=== PATIENT | female | born 1970 | race Caucasian/White ===

== ENCOUNTER 2020-06-17 16:23 | Emergency (ER) | payer SELFPAY ==
[2020-06-17 17:18] LABS: Absolute Lymphocytes (CBC) 0.5 K/uL (0.7-4.9); Basophils % 0.5 % (0-1.3); Hematocrit 33.7 % (36.0-45.0); Lymphocytes % 12.5 % (15.3-44.8); MPV 8.1 fL (7.6-11.3); RBC Red Blood Cell Count 3.94 M/uL (3.86-4.86)
[2020-06-17 17:19] LABS: Protime INR 1.12
[2020-06-17 17:26] LABS: ALT/SGPT 36 U/L (12-78); AST/SGOT 50 U/L (15-37); Albumin 2.7 g/dL (3.4-5.0); Alkaline Phosphatase 186 U/L (45-117); BUN Blood Urea Nitrogen 8 mg/dL (7-18); Bicarbonate 28 mmol/L (21-32); Bilirubin Direct 0.5 mg/dL (0-0.2); Bilirubin Total 1.3 mg/dL (0.2-1.0); Glucose Level 121 mg/dL (74-106); Magnesium 1.8 mg/dL (1.8-2.4); NT PRO-BNP 84 pg/mL (<125); Potassium 3.8 mmol/L (3.5-5.1); Protein, Total 7.8 g/dL (6.4-8.2); Sodium Level 143 mmol/L (136-145); Troponin (Emerg Dept Use Only) < 0.02 ng/mL (0.0-0.045)
--- NOTE | 2020-06-17 17:48 | RAD REPORT ---
EXAM DESCRIPTION: Katelyn Single View06/17/2020 5:03 pm CLINICAL HISTORY: Shortness of breath COMPARISON: 2014 FINDINGS: Lung bases are hazy. The heart is normal size IMPRESSION: Lung bases are hazy suspicious for bilateral infiltrates
[2020-06-17] MEDS ORDERED: HYDRALAZINE HCL 20 MG/ML VIAL ONE (17:54)
[2020-06-17] MEDS ORDERED: FUROSEMIDE 100 MG/10 ML VIAL IV ONE (17:54)
[2020-06-17] MEDS ORDERED: LABETALOL 20 MG/4ML SYRINGE IV ONE (18:38)
--- NOTE | 2020-06-17 18:57 | EDPHYS ---
Physician Documentation [facility] Name: Mercedes Carrillo Age: 49 yrs Sex: Female : 1970 Arrival Date: 06/17/2020 Time: 16:27 Bed 5 Private MD: ED Physician Cecil Jimenez HPI: 06/17 17:59 This 49 yrs old Female presents to ER via Ambulatory with complaints of jr8 Fever, Headache, Dizziness, chills. 17:59 Patient stated that she has had fevers, headache, dizziness, chills, chest pain, jr8 increased lower extremity swelling, and shortness of breath. Stated that the lower extremity swelling has been going on for past few weeks but all other symptoms just recently started . The patient has not experienced similar symptoms in the past. The patient has not recently seen a physician. 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 - Social history:: Smoking status: . ROS: 17:59 Eyes: Negative for injury, pain, redness, and discharge, ENT: Negative for injury, jr8 pain, and discharge, Neck: Negative for injury, pain, and swelling, MS/Extremity: Negative for injury and deformity, Skin: Negative for injury, rash, and discoloration. 17:59 Cardiovascular: Positive for chest pain, edema. 17:59 Respiratory: Positive for dyspnea on exertion. 17:59 Abdomen/GI: Positive for abdominal pain, Negative for nausea, vomiting, and diarrhea, constipation, abdominal cramps, abdominal distension, hematemesis, black/tarry stool, rectal pain, rectal bleeding, bowel incontinence, flatulence. 17:59 Back: Positive for pain at rest, pain with movement. 17:59 Neuro: Positive for dizziness, headache. Exam: 17:59 Eyes: Pupils equal round and reactive to light, extra-ocular motions intact. Lids and jr8 lashes normal. Conjunctiva and sclera are non-icteric and not injected. Cornea within normal limits. Periorbital areas with no swelling, redness, or edema. ENT: Nares patent. No nasal discharge, no septal abnormalities noted. Tympanic membranes are normal and external auditory canals are clear. Oropharynx with no redness, swelling, or masses, exudates, or evidence of obstruction, uvula midline. Mucous membranes moist. Neck: Trachea midline, no thyromegaly or masses palpated, and no cervical lymphadenopathy. Supple, full range of motion without nuchal rigidity, or vertebral point tenderness. No Meningismus. Respiratory: Lungs have equal breath sounds bilaterally, clear to auscultation and percussion. No rales, rhonchi or wheezes noted. No increased work of breathing, no retractions or nasal flaring. Abdomen/GI: Soft, non-tender, with normal bowel sounds. No distension or tympany. No guarding or rebound. No evidence of tenderness throughout. Back: No spinal tenderness. No costovertebral tenderness. Full range of motion. Skin: Warm, dry with normal turgor. Normal color with no rashes, no lesions, and no evidence of cellulitis. MS/ Extremity: Pulses equal, no cyanosis. Neurovascular intact. Full, normal range of motion. Neuro: Awake and alert, GCS 15, oriented to person, place, time, and situation. Cranial nerves II-XII grossly intact. Motor strength 5/5 in all extremities. Sensory grossly intact. Cerebellar exam normal. Normal gait. 17:59 Cardiovascular: Rate: normal, Rhythm: regular, Pulses: Pulses are 2+ in right radial artery and left radial artery. Heart sounds: murmur, systolic, grade 2 over 6, heard in the aortic area, S1, normal, S2, normal, Edema: 3+ edema to level of left midcalf, left ankle, left foot, left toes, right midcalf, right ankle, right foot and right toes. Vital Signs: 16:30 BP 231 / 84; Pulse 100; Resp 26; Temp 98.4(TE); Pulse Ox 100% on R/A; Weight 172.37 kg; ss Height 5 ft. 8 in. (172.72 cm); 16:40 Resp 18; ss 17:00 BP 194 / 74; Pulse 98; em 17:49 BP 213 / 65; Pulse 85; Resp 18; Pulse Ox 100% ; sv 18:11 BP 213 / 73; Pulse 102; Resp 18; Pulse Ox 100% ; sv 18:26 BP 181 / 77; Pulse 98; Resp 16; Pulse Ox 99% on R/A; em 18:30 BP 178 / 75; Pulse 103; Resp 16; Pulse Ox 100% ; sv 19:10 BP 174 / 78; Pulse 88; Resp 18; Pulse Ox 98% on R/A; wh 16:30 Body Mass Index 57.78 (172.37 kg, 172.72 cm) ss MDM: 16:33 Patient medically screened. [facility] 18:44 Data reviewed: vital signs, nurses notes, lab test result(s), EKG, radiologic studies, jr8 plain films. Data interpreted: Pulse oximetry: on room air is 100 %. Interpretation: normal. Counseling: I had a detailed discussion with the patient and/or guardian regarding: the historical points, exam findings, and any diagnostic results supporting the discharge/admit diagnosis, lab results, radiology results, the need for outpatient follow up, a family practitioner, hematology, to return to the emergency department if symptoms worsen or persist or if there are any questions or concerns that arise at home. ED course: Discussed with patient that the combination of her symptoms plus what we see on xray warrants antibiotics at this time. Also discussed that we will be putting her on BP meds. That patient needs to also f/u after all this for recheck of CBC for concern of pancytopenia. Patient good with this and will f/u . 06/17 16:38 Order name: Basic Metabolic Panel; Complete Time: 17:06/17 16:38 Order name: CBC with Diff; Complete Time: 17:06/17 16:38 Order name: LFT's; Complete Time: 17:06/17 16:38 Order name: Magnesium; Complete Time: 17:06/17 16:38 Order name: NT PRO-BNP; Complete Time: 17:29 06/17 16:38 Order name: PT-INR; Complete Time: 17:29 06/17 16:38 Order name: Troponin (emerg Dept Use Only); Complete Time: 17:06/17 16:38 Order name: XRAY Chest (1 view); Complete Time: 17:58 06/17 16:38 Order name: EKG; Complete Time: 16:39 06/17 16:38 Order name: Cardiac monitoring; Complete Time: 17:02 06/17 16:38 Order name: EKG - Nurse/Tech; Complete Time: 17:02 06/17 16:38 Order name: IV Saline Lock; Complete Time: 17:03 06/17 16:38 Order name: Labs collected and sent; Complete Time: 17:03 06/17 16:38 Order name: O2 Per Protocol; Complete Time: 17:03 06/17 16:38 Order name: O2 Sat Monitoring; Complete Time: 17: Administered Medications: 17:48 Drug: Lasix 80 mg Route: IVP; Site: right antecubital; em 18:30 Follow up: Response: No adverse reaction; Blood pressure is lowered em 17:50 Drug: hydrALAZINE 10 mg Route: IV; Rate: calculated rate; Site: right antecubital; em 18:30 Follow up: Response: No adverse reaction; Marked relief of symptoms; Blood pressure is em lowered; IV Status: Completed infusion 18:57 Not Given (Physician Discretion): Labetalol 20 mg IVP once over 2 mins em Disposition: 06/17/20 18:56 Discharged to Home. Impression: Essential (primary) hypertension, Pancytopenia, Pneumonia due to other specified bacteria. - Condition is Stable. - Discharge Instructions: Hypertension, Community-Acquired Pneumonia, Adult, DASH Eating Plan. - Prescriptions for Lisinopril- Hydrochlorothiazide 20-12.5 mg Oral Tablet - take 1 tablet by ORAL route once daily; 30 tablet. Zithromax 500 mg Oral Tablet - take 1 tablet by ORAL route once daily for 5 days; 5 tablet. - Medication Reconciliation Form, Thank You Letter, Antibiotic Education, Prescription Opioid Use form. - Follow up: Emanuel Cm DO; When: 7 - 10 days; Reason: Recheck today's complaints, Continuance of care, Re-evaluation by your physician. - Problem is new. - Symptoms have improved. Addendum: 06/22/2020 09:33 Co-signature as Attending Physician, Cecil Jimenez MD. r n Signatures: Dispatcher [employer] Walter Purvis, RN JOSE DE JESUS em Cecil Jimenez MD MD rn Smirch, Shelby, RN RN ss Roszak, Josh, BOAZ PA jr8 Anastacia Sneed Corrections: (The following items were deleted from the chart) 06/17 19:13 18:56 06/17/2020 18:56 Discharged to Home. Impression: Essential (primary) wh hypertension; Pancytopenia; Pneumonia due to other specified bacteria. Condition is Stable. Forms are Medication Reconciliation Form, Thank You Letter, Antibiotic Education, Prescription Opioid Use. Follow up: Emanuel Cm; When: 7 - 10 days; Reason: Recheck today's complaints, Continuance of care, Re-evaluation by your physician. Problem is new. Symptoms have improved. jr8
--- NOTE | 2020-06-17 18:57 | ER ---
Nurse's Notes [facility] Name: Mercedes Carrillo Age: 49 yrs Sex: Female : 1970 Arrival Date: 06/17/2020 Time: 16:27 Bed 5 Private MD: Diagnosis: Essential (primary) hypertension;Pancytopenia;Pneumonia due to other specified bacteria Presentation: 06/17 16:38 Chief complaint: Patient states: body aches, abd pain, yellow skin, SOB on exertion, ss headache and fatigue x 1 week. Pt states, "I believe it's my anemia. I had COVID in January and this is different.". Coronavirus screen: Client denies travel out of the [place] in the last 14 days. Ebola Screen: Patient denies exposure to infectious person. Patient denies travel to an Ebola-affected area in the 21 days before illness onset. 16:38 Method Of Arrival: Ambulatory ss 16:38 Initial Sepsis Screen: Does the patient have a suspected source of infection? No. ss Patient's initial sepsis screen is negative. Initial Sepsis Screen: Does the patient meet any 2 criteria? No. Patient's initial sepsis screen is negative. Risk Assessment: Do you want to hurt yourself or someone else? Patient reports no desire to harm self or others. Onset of symptoms was June 09, 2020. 16:38 Acuity: YASMANI 2 Triage Assessment: 19:10 Pain: Also complains of shortness of breath. 19:10 Headache History: The patient has had previous headaches. 19:10 Pain: Pain currently is 2 out of 10 on a pain scale. Pain began 2-3 days ago. 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 - Social history:: Smoking status: . Screenin:04 Abuse screen: Denies threats or abuse. Nutritional screening: No deficits noted. em Tuberculosis screening: No symptoms or risk factors identified. Fall Risk None identified. Assessment: 16:50 General: Appears in no apparent distress. uncomfortable, Behavior is calm, cooperative, em appropriate for age, Reports chills for >3 days. Pain: Complains of pain in abdomen and head. Neuro: Level of Consciousness is awake, alert, obeys commands, Oriented to person, place, time, situation, Appropriate for age Reports headache. Cardiovascular: Capillary refill < 3 seconds Patient's skin is warm and dry. Respiratory: Airway is patent Respiratory effort is even, unlabored, Respiratory pattern is regular, symmetrical. GI: Abdomen is obese, Patient currently denies nausea, vomiting. Derm: Skin is intact, is healthy with good turgor, Skin is pink, warm \\T\\ dry. Musculoskeletal: Capillary refill < 3 seconds, Range of motion: intact in all extremities. 18:10 Reassessment: Patient appears in no apparent distress at this time. Patient and/or em family updated on plan of care and expected duration. Pain level reassessed. Patient is alert, oriented x 3, equal unlabored respirations, skin warm/dry/pink. 18:26 Reassessment: Patient appears in no apparent distress at this time. BP 181/71, BOAZ Plascencia em notified, will hold medication. 19:10 Reassessment: Patient appears in no apparent distress at this time. Patient and/or wh family updated on plan of care and expected duration. Pain level reassessed. Patient is alert, oriented x 3, equal unlabored respirations, skin warm/dry/pink. Respiratory: Airway is patent Respiratory effort is even, unlabored, Respiratory pattern is regular, symmetrical. Vital Signs: 16:30 BP 231 / 84; Pulse 100; Resp 26; Temp 98.4(TE); Pulse Ox 100% on R/A; Weight 172.37 kg; Height 5 ft. 8 in. (172.72 cm); 16:40 Resp 18; ss 17:00 BP 194 / 74; Pulse 98; em 17:49 BP 213 / 65; Pulse 85; Resp 18; Pulse Ox 100% ; sv 18:11 BP 213 / 73; Pulse 102; Resp 18; Pulse Ox 100% ; sv 18:26 BP 181 / 77; Pulse 98; Resp 16; Pulse Ox 99% on R/A; em 18:30 BP 178 / 75; Pulse 103; Resp 16; Pulse Ox 100% ; sv 19:10 BP 174 / 78; Pulse 88; Resp 18; Pulse Ox 98% on R/A; 16:30 Body Mass Index 57.78 (172.37 kg, 172.72 cm) ED Course: 16:27 Patient arrived in ED. mr 16:27 Temo Carolina PA is PHCP. jr8 16:27 Cecil Jimenez MD is Attending Physician. jr8 16:30 Walter Marcus, RN is Primary Nurse. em 16:40 Triage completed. ss 16:40 Arm band placed on right wrist. ss 16:52 EKG done, by ED staff, reviewed by Temo SANDRA. dh3 17:00 Patient has correct armband on for positive identification. Placed in gown. Bed in low em position. Call light in reach. Side rails up X2. 17:04 XRAY Chest (1 view) In Process Unspecified. EDMS 18:55 Emanuel Cm DO is Referral Physician. jr8 19:03 Primary Nurse role handed off by Walter Marcus, JOSE DE JESUS mw2 19:10 Anastacia Sneed is Primary Nurse. 19:11 No provider procedures requiring assistance completed. IV discontinued, intact, wh bleeding controlled, No redness/swelling at site. Administered Medications: 17:48 Drug: Lasix 80 mg Route: IVP; Site: right antecubital; em 18:30 Follow up: Response: No adverse reaction; Blood pressure is lowered em 17:50 Drug: hydrALAZINE 10 mg Route: IV; Rate: calculated rate; Site: right antecubital; em 18:30 Follow up: Response: No adverse reaction; Marked relief of symptoms; Blood pressure is em lowered; IV Status: Completed infusion 18:57 Not Given (Physician Discretion): Labetalol 20 mg IVP once over 2 mins em Output: 18:30 Urine: 500ml (Voided); Total: 500ml. em Outcome: 18:56 Discharge ordered by . jr8 19:11 Discharged to home via wheelchair, with family. 19:11 Condition: stable 19:11 Discharge instructions given to patient, family, Instructed on discharge instructions, follow up and referral plans. medication usage, POC Demonstrated understanding of instructions, follow-up care, medications, POC Prescriptions given X 2. 19:13 Patient left the ED. Signatures: Dispatcher [employer] EDMI Keli Colón RN RN HerculesDenia mr Walter Marcus RN RN Elsa Garza RN RN Temo Carolina PA PA jr8 Gay Covarrubias 3 Anastacia Sneed MyKena mw2 Corrections: (The following items were deleted from the chart) 16:40 16:38 BP 231 / 84; Pulse 100bpm; Resp 26bpm; Pulse Ox 100% RA; Temp 98.4F Temporal; ss 172.37 kg; Height 5 ft. 8 in.; BMI: 57.7; ss
[2020-06-17 20:43] VITALS: TEMP 98.4
[2020-06-17 21:23] VITALS: BP 174/78; O2SAT 98
--- NOTE | 2020-06-19 06:11 | EKG ---
Test Date: 2020-06-17 Test Time: 16:52:59 Party Planner: FAMILIA MEASUREMENT RESULTS: Intervals: Rate: 95 HI: 146 QRSD: 94 QT: 368 QTc: 462 [place]: P: 17 HI: 146 QRS: 10 T: 42 INTERPRETIVE STATEMENTS: Normal sinus rhythm Possible Anterior infarct, age undetermined Abnormal ECG Compared to ECG 04/20/2015 07:57:19 Myocardial infarct finding now present Electronically Signed On 06-19-20 06:09:36 SATELLITE COMMUNICATIONS OPERATOR by Reed Bal
== END 2020-06-17 19:13 | disposition home or self-care (01) ==
LOC: ER 16:23
DX: J15.8 Pneumonia due to other specified bacteria (principal); D61.818 Other pancytopenia; I10 Essential (primary) hypertension; Z86.19 Personal history of other infectious and parasitic diseases; Z88.1 Allergy status to other antibiotic agents
CPT/HCPCS: 36415; 71045; 80048; 80076; 83735; 83880; 84484; 85025; 85610; 93005; 96365; 96375; 99284; J0360